=== PATIENT | male | born 1950 | race Caucasian/White ===

== ENCOUNTER 2022-01-19 06:36 | Day surgery (SDC) | payer OTHER ==
[~2022-01-19] VITALS: Ht 185.4 cm; Wt 106.0 kg
[~2022-01-19 06:36] MED LIST: FINA5 PO; JALYN PO; OMEP20ER PO; PRAV20; Prinivil10 MG PO
== END 2022-01-19 09:18 | disposition home or self-care (01) ==
LOC: ORSCSDS 06:36
PROVIDERS: Surgery
PROC: 0DBK8ZX Excision of Ascending Colon, Via Natural or Artificial Opening Endoscopic, Diagnostic (ICD-10-PCS; principal; 2022-01-19 08:00)
PROC: 0DB48ZX Excision of Esophagogastric Junction, Via Natural or Artificial Opening Endoscopic, Diagnostic (ICD-10-PCS; principal; 2022-01-19 08:00)
PROC: 0DBL8ZX Excision of Transverse Colon, Via Natural or Artificial Opening Endoscopic, Diagnostic (ICD-10-PCS; principal; 2022-01-19 08:00)
PROC: 0DBN8ZX Excision of Sigmoid Colon, Via Natural or Artificial Opening Endoscopic, Diagnostic (ICD-10-PCS; principal; 2022-01-19 08:00)
PROC: 0DB68ZX Excision of Stomach, Via Natural or Artificial Opening Endoscopic, Diagnostic (ICD-10-PCS; principal; 2022-01-19 08:00)
DX: K22.719 Barrett's esophagus with dysplasia, unspecified (principal); K44.9 Diaphragmatic hernia without obstruction or gangrene; D12.2 Benign neoplasm of ascending colon; D12.3 Benign neoplasm of transverse colon; D12.5 Benign neoplasm of sigmoid colon; Z12.11 Encounter for screening for malignant neoplasm of colon; Z86.010 Personal history of colon polyps; N40.0 Benign prostatic hyperplasia without lower urinary tract symptoms; F41.8 Other specified anxiety disorders; I10 Essential (primary) hypertension; E78.5 Hyperlipidemia, unspecified; G47.33 Obstructive sleep apnea (adult) (pediatric); Z79.899 Other long term (current) drug therapy; Z87.891 Personal history of nicotine dependence
CPT/HCPCS: 88305; 88342; J2704; J7120

== ENCOUNTER → 2023-08-09 | Outpatient (CLI) | payer OTHER | LOC: LAB 13:40 → LAB SHORT 13:40 | DX: L82.1 Other seborrheic keratosis (principal) | CPT/HCPCS: 88305 ==